=== PATIENT | female | born 1955 | race Caucasian/White ===

== ENCOUNTER → 2016-03-31 | Outpatient (CLI) | payer OTHER ==
--- NOTE | 2016-04-02 10:11 | MM ---
Reason for exam: screening (asymptomatic). Last mammogram was performed 1 year and 3 months ago. History: Patient is postmenopausal. Physical Findings: A clinical breast exam by your physician is recommended on an annual basis and results should be correlated with mammographic findings. MG Screening Mammo w CAD Bilateral CC and MLO view(s) were taken. Prior study comparison: December 20, 2014, bilateral MG screening mammo w CAD. The breast tissue is heterogeneously dense. This may lower the sensitivity of mammography. Finding: There is a high density, indistinct oval mass in the 9 o'clock middle position of the right breast, 4cm from the nipple. New finding since December 20, 2014. ASSESSMENT: Incomplete: need additional imaging evaluation, BI-RAD 0 RECOMMENDATION: Special view mammogram of the left breast. If lesion persists on supplemental views, image directed ultrasound is recommended. [facility] will attempt to contact patient to return for supplemental views and ultrasound if indicated.
== END | disposition home or self-care (01) ==
LOC: RADMAMWWP 13:54
PROVIDERS: ATTEND Obstetrics & Gynecology
DX: Z12.31 Encounter for screening mammogram for malignant neoplasm of breast (principal)

== ENCOUNTER → 2016-04-03 | Outpatient (CLI) | payer OTHER ==
--- NOTE | 2016-04-03 10:48 | MM ---
Reason for exam: additional evaluation requested from abnormal screening. Last mammogram was performed less than 1 month ago. History: Patient is postmenopausal. Physical Findings: Nurse did not find any significant physical abnormalities on exam. MG Work Up Mamm w CAD LT LM, spot compression CC, and spot compression MLO view(s) were taken of the left breast. Prior study comparison: March 31, 2016, bilateral MG screening mammo w CAD. December 20, 2014, bilateral MG screening mammo w CAD. Density persists at approximately 9 o'clock in the left breast. These results were verbally communicated with the patient and result sheet given to the patient on 04/03/16. ASSESSMENT: Incomplete: need additional imaging evaluation, BI-RAD 0 RECOMMENDATION: Ultrasound of the left breast.
--- NOTE | 2016-04-03 10:50 | USB ---
Reason for exam: additional evaluation requested from abnormal screening. History: Patient is postmenopausal. US Breast Workup Limited LT Left breast ultrasound demonstrates a 5 x 2 x 5mm oval, cystic lesion at 9 o'clock, probable duct. These results were verbally communicated with the patient and result sheet given to the patient on 04/03/16. ASSESSMENT: Probably benign, BI-RAD 3 RECOMMENDATION: Follow-up diagnostic mammogram of the left breast in 6 months.
== END | disposition home or self-care (01) ==
LOC: RADMAMWWP 08:29
PROVIDERS: ATTEND Obstetrics & Gynecology
DX: R92.8 Other abnormal and inconclusive findings on diagnostic imaging of breast (principal)
CPT/HCPCS: 76642; G0206

== ENCOUNTER 2016-06-06 20:25 | Emergency (ER) | payer OTHER ==
--- NOTE | 2016-06-06 20:47 | ED ---
General Adult HPI - General Chief complaint: Urogenital Stated complaint: Abd Pain Time Seen by Provider: 06/06/16 20:34 Source: patient, RN notes reviewed Mode of arrival: ambulatory Limitations: no limitations - History of Present Illness Initial comments: This is a 60-year-old female who presents with left lower quadrant pain that started this evening after dinner. Patient states that it was a cramping pain. Patient took a Fioricet and her pain improved, but is slowly increasing again. Patient states she just finished a course of Macrobid for a UTI yesterday. Patient states that she is not urinating as much as she should and patinet denies any burning with urination or frequency of urination. Patient states she feels like she has to go but then cannot. Patient has been eating and drinking normally. Patient denies any change in bowel movements. Patient denies any hematuria, hematochezia, nausea/vomiting. Patient denies any history of kidney stones. Patient has never had this pain before. Patient denies any vaginal discharge or vaginal bleeding. Patient denies any recent fever, chills, shortness breath, chest pain, nausea/vomiting/diarrhea, back pain , numbness, tingling, headache, or visual changes, or any other complaints. - Related Data Home Medications Medication Instructions Recorded Confirmed Atorvastatin [Lipitor] 20 mg PO DAILY 05/27/15 06/06/16 Montelukast [Singulair] 10 mg PO DAILY 05/27/15 06/06/16 Raloxifene [Evista] 60 mg PO DAILY 05/27/15 06/06/16 Verapamil [Isoptin] 40 mg PO DAILY 05/27/15 06/06/16 Previous Rx's Medication Instructions Recorded Ciprofloxacin HCl [Cipro] 500 mg PO Q12HR 10 Days 06/06/16 Allergies Allergy/AdvReac Type Severity Reaction Status Date / Time bandaids AdvReac Rash/Hives Uncoded 06/06/16 20:31 Review of Systems ROS Statement: Those systems with pertinent positive or pertinent negative responses have been documented in the HPI. ROS Other: All systems not noted in ROS Statement are negative. Past Medical History Past Medical History: Hyperlipidemia Additional Past Medical History / Comment(s): HX MIGRAINES, DYSPHAGIA, OSTEOPOROSIS History of Any Multi-Drug Resistant Organisms: None Reported Past Surgical History: Orthopedic Surgery Additional Past Surgical History / Comment(s): ORIF LEFT ANKLE, VAGINAL SX, COLONOSCOPY Past Anesthesia/Blood Transfusion Reactions: No Reported Reaction Past Psychological History: No Psychological Hx Reported Smoking Status: Former smoker Past Alcohol Use History: None Reported Additional Past Alcohol Use History / Comment(s): SMOKED FROM AGE [age], 2-3PPD Past Drug Use History: None Reported General Exam - General Exam Comments Initial Comments: General: The patient is awake and alert, in no distress, and does not appear acutely ill. Eye: Pupils are equal, round and reactive to light, extra-ocular movements are intact. No nystagmus. There is normal conjunctiva bilaterally. No signs of icterus. Ears: TMs pink and pearly with intact cone of light bilaterally. Normal external ear canals Nose: Nasal turbinates pink and moist Mouth and throat: There are moist mucous membranes and no oral lesions. Neck: The neck is supple, there is no tenderness or JVD. Cardiovascular: There is a regular rate and rhythm. No murmur, rub or gallop is appreciated. Respiratory: Lungs are clear to auscultation, respirations are non-labored, breath sounds are equal. No wheezes, stridor, rales, or rhonchi. Gastrointestinal: Mild discomfort to palpation of the left lower quadrant. Soft, non-distended abdomen without masses or organomegaly noted. There is no rebound or guarding present. No CVA tenderness. Bowel sounds are unremarkable. Musculoskeletal: Normal ROM, no tenderness. Strength 5/5. Sensation intact. Radial pulses equal bilaterally 2+. Neurological: A&O x 3. CN II-XII intact, There are no obvious motor or sensory deficits. Coordination appears grossly intact. Speech is normal. Skin: Skin is warm and dry and no rashes or lesions are noted. Psychiatric: Cooperative, appropriate mood & affect, normal judgment. Limitations: no limitations External exam: Present: normal external exam. Absent: erythema, swelling By manual exam: Present: normal by manual exam. Absent: cervical motion tenderness, adnexal tenderness Course Vital Signs 06/06/16 06/06/16 20:29 22:59 Temperature 97.9 F 98.1 F Pulse Rate 79 60 Respiratory 18 16 Rate Blood Pressure 116/83 106/63 O2 Sat by Pulse 98 98 Oximetry Medical Decision Making - Medical Decision Making This is a 60-year-old female presents with left lower quadrant pain. On physical exam patient is afebrile in the EC. Mild discomfort to palpation of the left lower quadrant. Soft, non-distended abdomen without masses or organomegaly noted. There is no rebound or guarding present. No CVA tenderness. Bowel sounds are unremarkable. A KUB was done and reviewed showing : Minimal stool in the right colon. No evidence of obstruction. Paucity of bowel gas. Reported by Dr. Guzman. Basic labs were drawn. A urine was done and came back positive for red blood cells. Urine culture is pending. I discussed the patient will be put on a course of ciprofloxacin for UTI. Discussed that patient should have a repeat urinalysis done in 2-3 days to monitor for improvement. I discussed that patient may need a future CT scan to rule out kidney stone or tumor if the red blood cells in her urine do not decrease. Patient is currently afebrile and is not in a lot of pain. I discussed Tylenol and Motrin for pain and return parameters. I discussed the patient should follow up with her primary care physician in one to 2 days or return to the EC for any worsening symptoms or for any further concerns. Patient was receptive to this plan and patient will be discharged home. I discussed this case with attending physician Dr. Bruno who agrees the plan as stated above. - Lab Data Result diagrams: 06/06/16 21:28 06/06/16 21:28 Lab Results 06/06/16 06/06/16 06/06/16 Range/Units 21:28 21:28 21:28 WBC 8.8 (3.8-10.6) k/uL RBC 4.46 (3.80-5.40) m/uL Hgb 13.5 (11.4-16.0) gm/dL Hct 41.2 (34.0-46.0) % MCV 92.5 (80.0-100.0) fL MCH 30.2 (25.0-35.0) pg MCHC 32.7 (31.0-37.0) g/dL RDW 13.2 (11.5-15.5) % Plt Count 475 H (150-450) k/uL Neutrophils % 78 % Lymphocytes % 15 % Monocytes % 4 % Eosinophils % 0 % Basophils % 0 % Neutrophils # 6.9 (1.3-7.7) k/uL Lymphocytes # 1.3 (1.0-4.8) k/uL Monocytes # 0.3 (0-1.0) k/uL Eosinophils # 0.0 (0-0.7) k/uL Basophils # 0.0 (0-0.2) k/uL PT 11.2 (9.0-12.0) sec INR 1.1 (<1.1) APTT 23.6 (22.0-30.0) sec Sodium 139 (137-145) mmol/L Potassium 4.1 (3.5-5.1) mmol/L Chloride 102 (98-107) mmol/L Carbon Dioxide 26 (22-30) mmol/L Anion Gap 11 mmol/L BUN 20 H (7-17) mg/dL Creatinine 0.80 (0.52-1.04) mg/dL Est GFR (MDRD) Af Amer >60 (>60 ml/min/1.73 sqM) Est GFR (MDRD) Non-Af >60 (>60 ml/min/1.73 sqM) Glucose 118 H (74-99) mg/dL Calcium 9.7 (8.4-10.2) mg/dL Total Bilirubin 0.6 (0.2-1.3) mg/dL AST 32 (14-36) U/L ALT 36 (9-52) U/L Alkaline Phosphatase 95 (38-126) U/L Total Protein 7.5 (6.3-8.2) g/dL Albumin 4.1 (3.5-5.0) g/dL Amylase 74 (30-110) U/L Urine Color Urine Appearance (Clear) Urine pH (5.0-8.0) Ur Specific [place] (1.001-1.035) Urine Protein (Negative) Urine Glucose (UA) (Negative) Urine Ketones (Negative) Urine Blood (Negative) Urine Nitrite (Negative) Urine Bilirubin (Negative) Urine Urobilinogen (<2.0) mg/dL Ur Leukocyte Esterase (Negative) Urine RBC (0-5) /hpf Urine WBC (0-5) /hpf Calcium Oxalate Crystal (None) /hpf Urine Bacteria (None) /hpf Urine Mucus (None) /hpf 06/06/16 Range/Units 21:28 WBC (3.8-10.6) k/uL RBC (3.80-5.40) m/uL Hgb (11.4-16.0) gm/dL Hct (34.0-46.0) % MCV (80.0-100.0) fL MCH (25.0-35.0) pg MCHC (31.0-37.0) g/dL RDW (11.5-15.5) % Plt Count (150-450) k/uL Neutrophils % % Lymphocytes % % Monocytes % % Eosinophils % % Basophils % % Neutrophils # (1.3-7.7) k/uL Lymphocytes # (1.0-4.8) k/uL Monocytes # (0-1.0) k/uL Eosinophils # (0-0.7) k/uL Basophils # (0-0.2) k/uL PT (9.0-12.0) sec INR (<1.1) APTT (22.0-30.0) sec Sodium (137-145) mmol/L Potassium (3.5-5.1) mmol/L Chloride (98-107) mmol/L Carbon Dioxide (22-30) mmol/L Anion Gap mmol/L BUN (7-17) mg/dL Creatinine (0.52-1.04) mg/dL Est GFR (MDRD) Af Amer (>60 ml/min/1.73 sqM) Est GFR (MDRD) Non-Af (>60 ml/min/1.73 sqM) Glucose (74-99) mg/dL Calcium (8.4-10.2) mg/dL Total Bilirubin (0.2-1.3) mg/dL AST (14-36) U/L ALT (9-52) U/L Alkaline Phosphatase (38-126) U/L Total Protein (6.3-8.2) g/dL Albumin (3.5-5.0) g/dL Amylase (30-110) U/L Urine Color Light Red Urine Appearance Cloudy H (Clear) Urine pH 5.0 (5.0-8.0) Ur Specific [place] 1.028 (1.001-1.035) Urine Protein 1+ H (Negative) Urine Glucose (UA) Negative (Negative) Urine Ketones Negative (Negative) Urine Blood Large H (Negative) Urine Nitrite Negative (Negative) Urine Bilirubin Negative (Negative) Urine Urobilinogen <2.0 (<2.0) mg/dL Ur Leukocyte Esterase Trace H (Negative) Urine RBC >182 H (0-5) /hpf Urine WBC <1 (0-5) /hpf Calcium Oxalate Crystal Many H (None) /hpf Urine Bacteria Rare H (None) /hpf Urine Mucus Few H (None) /hpf Disposition Clinical Impression: Urinary tract infection Disposition: HOME SELF-CARE Condition: Good Instructions: Urinary Tract Infection in Women (ED) Additional Instructions: Please finish entire course of antibiotics. Please have a repeat urinalysis done in 2-3 days. Please follow-up with her primary care physician in one to 2 days or return to the [facility] for any worsening symptoms or for any further concerns. Prescriptions: Ciprofloxacin HCl [Cipro] 500 mg PO Q12HR 10 Days Referrals: Jimbo Chamberlain MD [Primary Care Provider] - 1-2 days Time of Disposition: 22:50
[2016-06-06 21:40] LABS: Basophils % (A) 0 %; CH 31.1; CHCM 33.7; Eosinophils % (A) 0 %; HCT 41.2 % (34.0-46.0); HGB 13.5 gm/dL (11.4-16.0); Luc # (Auto) 0.19; Luc % (Auto) 2; Lymphocytes # (A) 1.3 k/uL (1.0-4.8); Lymphocytes % (A) 15 %; MCH 30.2 pg (25.0-35.0); MCHC 32.7 g/dL (31.0-37.0); MCV 92.5 fL (80.0-100.0); Mean Platelet Volume 7.4; Monocytes # (A) 0.3 k/uL (0-1.0); Monocytes % (A) 4 %; Neutrophils # (A) 6.9 k/uL (1.3-7.7); Neutrophils % (A) 78 %; RBC 4.46 m/uL (3.80-5.40); RDW 13.2 % (11.5-15.5); WBC 8.8 k/uL (3.8-10.6)
[2016-06-06 21:44] LABS: Appearance,Urine Cloudy (Clear); Bacteria,Urine Rare /hpf; Bilirubin,Urine Negative (Negative); Calcium Oxalate Crystals,Urine Many /hpf; Glucose,Urine (UA) Negative (Negative); Ketones,Urine Negative (Negative); Leukocyte Esterase,Urine Trace (Negative); Mucus,Urine Few /hpf; Nitrite,Urine Negative (Negative); Particle Count 8243; Protein,Urine 1+ (Negative); RBC,Urine >182 /hpf (0-5); Specific Gravity,Urine 1.028 (1.001-1.035); UA Billing (MACRO vs. MICRO) MICRO; Urobilinogen,Urine <2.0 mg/dL (<2.0); WBC,Urine <1 /hpf (0-5)
[2016-06-06 21:57] LABS: ALT 36 U/L (9-52); AST 32 U/L (14-36); Alkaline Phosphatase 95 U/L (38-126); Amylase 74 U/L (30-110); Anion Gap 11 mmol/L; Blood Urea Nitrogen 20 mg/dL (7-17); Calcium 9.7 mg/dL (8.4-10.2); Carbon Dioxide 26 mmol/L (22-30); Chloride 102 mmol/L (98-107); Glucose 118 mg/dL (74-99); INR 1.1 (<1.1); Non-African American GFR(MDRD) >60 (>60 ml/min/1.73 sqM); Partial Thromboplastin Time 23.6 sec (22.0-30.0); Potassium 4.1 mmol/L (3.5-5.1); Prothrombin Time 11.2 sec (9.0-12.0); Sodium 139 mmol/L (137-145); Total Bilirubin 0.6 mg/dL (0.2-1.3); Total Protein 7.5 g/dL (6.3-8.2)
--- NOTE | 2016-06-06 22:45 | XR ---
EXAM: XR Abdomen Complete, 2 or More Views. CLINICAL HISTORY: Reason: Pain TECHNIQUE: Frontal view of the abdomen/pelvis with upright view of the abdomen. COMPARISON: None FINDINGS: Hardware: None. Abdomen: Minimal stool in the right colon. Paucity of bowel gas throughout the abdomen. No evidence of bowel obstruction. No free air. Bones: Degenerative changes of the spine. Soft tissues: Normal. Lower chest: Mild cardiomegaly. IMPRESSION: Minimal stool in the right colon. No evidence of obstruction. Paucity of bowel gas.
[2016-06-06 23:00] VITALS: BP 106/63; PULSE 60; RESP 16; TEMP 98.1
== END 2016-06-06 22:59 | disposition home or self-care (01) ==
LOC: EC 20:25
DX: N39.0 Urinary tract infection, site not specified (principal); E78.5 Hyperlipidemia, unspecified; Z87.891 Personal history of nicotine dependence; Z79.899 Other long term (current) drug therapy; Z91.048 Other nonmedicinal substance allergy status
CPT/HCPCS: 36415; 74000; 80053; 81001; 82150; 85025; 85610; 85730; 87086; 99284

== ENCOUNTER → 2016-10-02 | Outpatient (CLI) | payer OTHER ==
--- NOTE | 2016-10-05 07:45 | MM ---
Reason for exam: follow-up at short interval from prior study. Last mammogram was performed 6 months ago. History: Patient is postmenopausal. Physical Findings: Nurse did not find any significant physical abnormalities on exam. MG Diagnostic Mammo LT w CAD CC and MLO view(s) were taken of the left breast. Prior study comparison: April 03, 2016, left breast MG work up mamm w CAD LT. April 03, 2016, left breast US breast workup limited LT. March 31, 2016, bilateral MG screening mammo w CAD. December 20, 2014, bilateral MG screening mammo w CAD. The breast tissue is heterogeneously dense. This may lower the sensitivity of mammography. The questioned focal asymmetry does not persist. No significant new findings when compared with previous films. These results were verbally communicated with the patient and result sheet given to the patient on 10/02/16. ASSESSMENT: Negative, BI-RAD 1 RECOMMENDATION: Return to routine screening mammogram schedule for both breasts. Back on schedule.
== END | disposition home or self-care (01) ==
LOC: RADMAMWWP 12:43
PROVIDERS: ATTEND Obstetrics & Gynecology
DX: R92.8 Other abnormal and inconclusive findings on diagnostic imaging of breast (principal)

== ENCOUNTER → 2017-07-19 | Outpatient (CLI) | payer BC ==
--- NOTE | 2017-07-20 07:14 | MM ---
Reason for exam: screening (asymptomatic). Last mammogram was performed 10 months ago. History: Patient is postmenopausal. Physical Findings: A clinical breast exam by your physician is recommended on an annual basis and results should be correlated with mammographic findings. MG Screening Mammo w CAD Bilateral CC and MLO view(s) were taken. Prior study comparison: October 02, 2016, left breast MG diagnostic mammo LT w CAD. April 03, 2016, left breast MG work up mamm w CAD LT. The breast tissue is heterogeneously dense. This may lower the sensitivity of mammography. There is no discrete abnormality. ASSESSMENT: Negative, BI-RAD 1 RECOMMENDATION: Routine screening mammogram of both breasts in 1 year.
== END | disposition home or self-care (01) ==
LOC: RADMAMWWP 10:55
PROVIDERS: ATTEND Obstetrics & Gynecology
DX: Z12.31 Encounter for screening mammogram for malignant neoplasm of breast (principal)
CPT/HCPCS: 77067

== ENCOUNTER 2017-08-31 16:13 | Emergency (ER) | payer BC ==
[2017-08-31 16:57] VITALS: BP 120/67; PULSE 63; RESP 18; TEMP 98.4
[2017-08-31] MEDS ORDERED: APIXABAN 5 MG TAB PO STA (17:29)
--- NOTE | 2017-08-31 17:30 | ED ---
Lower Extremity Injury HPI - General Chief Complaint: Extremity Injury, Lower Stated Complaint: Confirmed lt leg DVT Time Seen by Provider: 08/31/17 17:11 Source: patient, RN notes reviewed Mode of arrival: wheelchair Limitations: no limitations - History of Present Illness Initial Comments: This a 61-year-old female presented emergency Department with chief complaint of left leg pain and swelling. Patient had surgery last Wednesday by Dr. Bruno. Patient had arthroscopic left knee surgery. Patient was sent here for ultrasound today in which the patient is positive for DVT. She has no history DVT. Patient denies any chest pain, shortness breath, headache, dizziness. Patient states that she was sent here for further treatment. - Related Data Home Medications Medication Instructions Recorded Confirmed Atorvastatin [Lipitor] 20 mg PO DAILY 05/27/15 08/31/17 Montelukast [Singulair] 10 mg PO DAILY 05/27/15 08/31/17 Raloxifene [Evista] 60 mg PO DAILY 05/27/15 08/31/17 Aspirin EC [Ecotrin Low Dose] 81 mg PO DAILY 08/31/17 08/31/17 Calcium Carbonate/Vitamin D3 2 tab PO DAILY 08/31/17 08/31/17 [Calcium 600-Vit D3 400 Caplet] Multivitamins, Thera [Multivitamin 1 tab PO DAILY 08/31/17 08/31/17 (formulary)] Verapamil Sr [Isoptin Sr] 240 mg PO DAILY 08/31/17 08/31/17 Previous Rx's Medication Instructions Recorded Apixaban [Eliquis] 0 mg PO DIRECTED #74 tablet 08/31/17 Allergies Allergy/AdvReac Type Severity Reaction Status Date / Time bandaids AdvReac Rash/Hives Uncoded 08/31/17 16:57 Review of Systems ROS Statement: Those systems with pertinent positive or pertinent negative responses have been documented in the HPI. ROS Other: All systems not noted in ROS Statement are negative. Past Medical History Past Medical History: Hyperlipidemia Additional Past Medical History / Comment(s): HX MIGRAINES, DYSPHAGIA, OSTEOPOROSIS History of Any Multi-Drug Resistant Organisms: None Reported Past Surgical History: Orthopedic Surgery Additional Past Surgical History / Comment(s): ORIF LEFT ANKLE, VAGINAL SX, COLONOSCOPY Past Anesthesia/Blood Transfusion Reactions: No Reported Reaction Past Psychological History: No Psychological Hx Reported Smoking Status: Former smoker Past Alcohol Use History: None Reported Past Drug Use History: None Reported General Exam Limitations: no limitations General appearance: alert, in no apparent distress Respiratory exam: Present: normal lung sounds bilaterally. Absent: respiratory distress, wheezes, rales, rhonchi, stridor Cardiovascular Exam: Present: regular rate, normal rhythm, normal heart sounds. Absent: systolic murmur, diastolic murmur, rubs, gallop, clicks Extremities exam: Present: other (There is mild tenderness the left calf. Patient has full range of motion of the left foot and ankle there is mild decreased range of motion left knee secondary to recent knee surgery there is no erythema no warmth.) Skin exam: Present: warm, dry Course Vital Signs 08/31/17 16:52 Temperature 98.4 F Pulse Rate 63 Respiratory 18 Rate Blood Pressure 120/67 O2 Sat by Pulse 100 Oximetry Medical Decision Making - Medical Decision Making 61-year-old female presents for chief complaint of left leg pain. Patient is positive for DVT. Patient has no chest pain or shortness of breath. Patient DVT likely cause from recent surgery. Patient was started on Eliquis in the emergency department discharged on Eliquis. Disposition Clinical Impression: Left leg DVT Disposition: HOME SELF-CARE Condition: Stable Instructions: Deep Venous Thrombosis (ED) Additional Instructions: Please return to the Emergency Department if symptoms worsen or any other concerns. Prescriptions: Apixaban [Eliquis] 0 mg PO DIRECTED #74 tablet Is patient prescribed a controlled substance at d/c from ED?: No Referrals: Jimbo Chamberlain MD [Primary Care Provider] - 1-2 days Time of Disposition: 17:29
--- NOTE | 2017-09-01 07:13 | US ---
EXAMINATION TYPE: US venous doppler duplex LE LT DATE OF EXAM: 08/31/2017 4:00 PM COMPARISON: NONE CLINICAL HISTORY: LEG PAIN,SWELLING, I82.401/I82.402/M79.661/M79.662. Cramping left leg, orthoscopic surgery left knee 1 week ago SIDE PERFORMED: left TECHNIQUE: The lower extremity deep venous system is examined utilizing real time linear array sonog saritha with graded compression, doppler sonography and color-flow sonography. VESSELS IMAGED: External Iliac Vein (EIV) Common Femoral Vein Deep Femoral Vein Greater Saphenous Vein * Femoral Vein Popliteal Vein Small Saphenous Vein * Proximal Calf Veins (* superficial vessels) Grayscale, color doppler, spectral doppler imaging performed of the deep veins of the left lower extr emity. Left Leg: +Positive for DVT, left popliteal vein mid extending into one of the proximal calf veins IMPRESSION: Acute deep venous thrombosis within the left popliteal vein extending into a proximal c el vein. Preliminary results given to Ana at end of exam. Patient walked down to the ER
== END 2017-08-31 17:51 | disposition home or self-care (01) ==
LOC: EC 16:13
DX: I82.402 Acute embolism and thrombosis of unspecified deep veins of left lower extremity (principal); E78.5 Hyperlipidemia, unspecified; M81.0 Age-related osteoporosis without current pathological fracture; Z87.891 Personal history of nicotine dependence; Z79.82 Long term (current) use of aspirin; Z79.899 Other long term (current) drug therapy; Z91.09 Other allergy status, other than to drugs and biological substances; Z98.890 Other specified postprocedural states
CPT/HCPCS: 99283

== ENCOUNTER → 2018-08-01 | Outpatient (CLI) | payer BC ==
--- NOTE | 2018-08-02 10:49 | MM ---
Reason for exam: screening (asymptomatic). Last mammogram was performed 1 year ago. History: Patient is postmenopausal. Physical Findings: A clinical breast exam by your physician is recommended on an annual basis and results should be correlated with mammographic findings. MG Screening Mammo w CAD Bilateral CC and MLO view(s) were taken. Prior study comparison: July 19, 2017, bilateral MG screening mammo w CAD. October 02, 2016, left breast MG diagnostic mammo LT w CAD. The breast tissue is heterogeneously dense. This may lower the sensitivity of mammography. No significant changes when compared with prior studies. ASSESSMENT: Negative, BI-RAD 1 RECOMMENDATION: Routine screening mammogram of both breasts in 1 year.
== END | disposition home or self-care (01) ==
LOC: RADMAMWWP 14:36
PROVIDERS: ATTEND Obstetrics & Gynecology
DX: Z12.31 Encounter for screening mammogram for malignant neoplasm of breast (principal)
CPT/HCPCS: 77067

== ENCOUNTER → 2018-09-19 | Outpatient (CLI) | payer MEDICARE ==
--- NOTE | 2018-09-19 15:30 | BD ---
EXAMINATION TYPE: Axial Bone Density DATE OF EXAM: 09/19/2018 COMPARISON: 12/20/2014 CLINICAL HISTORY: M [age]. Postmenopausal female. Osteoporosis screening. Height: 60.5 Weight: 195 FRAX RISK QUESTIONS: Alcohol (3 or more units per day): no Family History (Parent hip fracture): unknown Glucocorticoids (More than 3mos): no (Ex: prednisone, prednisolone, methylprednisolone, dexamethasone, and hydrocortisone). History of Fracture in Adulthood: yes, both ankles Secondary Osteoporosis: 1. Type 1 Diabetes: no 2. Hyperthyroidism: no 3. Menopause before 45: at 43 4. Malnutrition: no 5. Chronic liver disease: no Rheumatoid Arthritis: no Current Tobacco Use: no RISK FACTORS HISTORY OF: Family History of Osteoporosis: unknown Active: yes Diet low in dairy products/other sources of calcium: no Postmenopausal woman: yes Take estrogen and/or progesterone medications: no Lost more than 2 inches in height since high school: no Frequent falls: no Poor Health: no Hyperparathyroidism: no Adrenal Insufficiency: no MEDICATIONS: Prednisone or other steroids: no Thyroid Medications: no Osteoporosis Medications: not now Which medication: Evista How Long: a few years Additional Medications: cholesterol med Additional History: EXAM MEASUREMENTS: Bone mineral densitometry was performed using the [employer] System. Bone mineral density as measured about the Lumbar spine is: ----- L1-L4(G/cm2): 1.022 T Score Values are as follows: ----- L2: -1.7 ----- L3: -1.5 ----- L4: -0.9 ----- L1-L4: -1.3 Bone mineral density has: Increased 0.3% since study of: 12/20/2014 Bone mineral density about the R hip (g/cm2): 0.817 Bone mineral density about the L hip (g/cm2): 0.789 T Score values are as follows: -----R Neck: -1.6 -----L Neck: -1.8 -----R Total: -1.0 -----L Total: -1.3 Bone mineral density has: Decreased -0.7% since study of: 12/20/2014 IMPRESSION: Osteopenia (T Score between -2.5 and -1). There is slightly increased risk of fracture and the patient may be considered for treatment. Re-Screen 2-5 years. NOTE: T-SCORE=SD OF THE YOUNG ADULT MEAN.
== END | disposition home or self-care (01) ==
LOC: RADBDWWP 13:34
PROVIDERS: ATTEND Internal Medicine
DX: M85.80 Other specified disorders of bone density and structure, unspecified site (principal)
CPT/HCPCS: 77080

== ENCOUNTER → 2020-03-28 | Outpatient (CLI) | payer MEDICARE ==
--- NOTE | 2020-03-29 14:52 | MM ---
Reason for exam: screening (asymptomatic). Last mammogram was performed 1 year and 8 months ago. History: Patient is postmenopausal. Physical Findings: A clinical breast exam by your physician is recommended on an annual basis and results should be correlated with mammographic findings. MG 3D Screening Mammo W/Cad Bilateral CC and MLO view(s) were taken. Prior study comparison: August 01, 2018, bilateral MG screening mammo w CAD. July 19, 2017, bilateral MG screening mammo w CAD. The breast tissue is heterogeneously dense. This may lower the sensitivity of mammography. There is no discrete abnormality. ASSESSMENT: Negative, BI-RAD 1 RECOMMENDATION: Routine screening mammogram of both breasts in 1 year.
== END | disposition home or self-care (01) ==
LOC: RADMAMWWP 11:02
PROVIDERS: ATTEND Internal Medicine
DX: Z12.31 Encounter for screening mammogram for malignant neoplasm of breast (principal)
CPT/HCPCS: 77063; 77067

== ENCOUNTER → 2020-09-24 | Outpatient (CLI) | payer MEDICARE | END | disposition home or self-care (01) ==

== ENCOUNTER 2021-06-29 10:16 | Emergency (ER) | payer MEDICARE ==
[2021-06-29 10:25] VITALS: TEMP 97.2
[2021-06-29 11:41] VITALS: RESP 16
--- NOTE | 2021-06-29 11:57 | US ---
EXAMINATION TYPE: US venous doppler duplex LE LT DATE OF EXAM: 06/29/2021 11:43 AM COMPARISON: US left lower extremity August 31, 2017 CLINICAL HISTORY: Pain radiating from groin, hx of DVT. Hx DVT. Groin pain. Patient takes aspirin. Hx left knee surgery 5 years ago. SIDE PERFORMED: Left TECHNIQUE: The lower extremity deep venous system is examined utilizing real time linear array sonog saritha with graded compression, doppler sonography and color-flow sonography. VESSELS IMAGED: Common Femoral Vein Deep Femoral Vein Greater Saphenous Vein * Femoral Vein Popliteal Vein Small Saphenous Vein * Proximal Calf Veins (* superficial vessels) Left Leg: No evidence of DVT in veins imaged at this time. IMPRESSION: No ultrasound evidence for acute DVT in the left lower extremity. No significant change from prior.
--- NOTE | 2021-06-29 13:25 | CT ---
EXAMINATION TYPE: CT lumbar spine wo con DATE OF EXAM: 06/29/2021 COMPARISON: None available HISTORY: Left leg pain and weakness CT DLP: 1068 mGycm. Automated Exposure Control for Dose Reduction was Utilized. TECHNIQUE: Multiple contiguous axial CT images of the thoracic spine without the administration of intravenous c ontrast. 2-D sagittal and coronal reformats were obtained. FINDINGS: Lumbar vertebral body heights maintained. Minimal grade 1 anterolisthesis of L4-5. No acute fracture or traumatic subluxation. Mild multilevel degenerative disc changes with anterior osteophyte formation. Mild intervertebral dis c height loss at the level of T11-12 Multilevel facet arthropathy most pronounced in the lower lumbar spine which appears advanced at the levels of L4-5 and L5-S1. The spinous processes of the lumbar spine appear hypertrophied and closely approximated with associat ed sclerosis and cystic changes. Paraspinal soft tissues appear unremarkable. Partially visualized retroperitoneal structures appear u nremarkable. T12-L1: Broad-based disc protrusion. Mild facet arthropathy. No spinal canal stenosis or neural anthony inal narrowing. T12-L1: No disc bulge. Mild facet arthropathy. No spinal canal stenosis or neural foraminal narrowing . L1-2: No disc bulge. Mild facet arthropathy. No spinal canal stenosis or neural foraminal narrowing. L2-3: No disc bulge. Mild facet arthropathy. No spinal canal stenosis or neural foraminal narrowing. L3-4: Broad-based disc bulge. Moderate facet arthropathy. No spinal canal stenosis or neural foramina l narrowing. L4-5: Grade 1 anterolisthesis. Broad-based disc bulge. Advanced facet arthropathy. No spinal canal st enosis or neural foraminal narrowing. L5-S1: Broad-based disc bulge with right foraminal disc osteophyte complex. No spinal canal stenosis or neural foraminal narrowing. IMPRESSION: 1. No acute fracture or traumatic subluxation involving the thoracic or lumbar spines. 2. No spinal canal stenosis or neural foraminal narrowing. 3. Multilevel facet arthropathy most pronounced in the lower lumbar spine which appears advanced caus ing minimal grade 1 anterolisthesis of L4-5. 4. Hypertrophied and closely approximated spinous processes with associated sclerosis and cystic villalobos ges. Findings could relate to underlying Baastrup's disease. Further evaluation with MRI can be obtai jesús.
--- NOTE | 2021-06-29 14:16 | ED ---
Extremity Problem HPI - General Chief complaint: Extremity Problem,Nontraumatic Stated complaint: possible blood clot Time Seen by Provider: 06/29/21 10:29 Source: patient, family, RN notes reviewed Mode of arrival: ambulatory Limitations: no limitations - History of Present Illness Initial comments: This is a 65-year-old female who presents to the emergency department for left leg pain. States that the pain radiates from the left groin and goes down the leg. She describes this as both pain and weakness. When she gets in the car, she has to physically lift her leg to get in. The pain also wakes her up at night, and she describes this pain as cramping. She does have a history of a DVT in that leg as well. Symptoms have been present for a week. Denies any chest pain or shortness of breath. She does note that a few days ago, she had swelling that went down to the top of her foot as well as some redness, however this resolved by the next day. She does not currently have any erythema or swelling. She also notes a history of lower back problems, and she was last evaluated by neurology over 15 years ago. MD Complaint: extremity pain Onset/Timin -: week(s) Location: left, lower extremity Worsens with: weight bearing - Related Data Home Medications Medication Instructions Recorded Confirmed Atorvastatin [Lipitor] 20 mg PO DAILY 05/27/15 08/31/17 Montelukast [Singulair] 10 mg PO DAILY 05/27/15 08/31/17 Raloxifene [Evista] 60 mg PO DAILY 05/27/15 08/31/17 Aspirin EC [Ecotrin Low Dose] 81 mg PO DAILY 08/31/17 08/31/17 Calcium Carbonate/Vitamin D3 2 tab PO DAILY 08/31/17 08/31/17 [Calcium 600-Vit D3 400 Caplet] Multivitamins, Thera [Multivitamin 1 tab PO DAILY 08/31/17 08/31/17 (formulary)] Verapamil Sr [Isoptin Sr] 240 mg PO DAILY 08/31/17 08/31/17 Previous Rx's Medication Instructions Recorded Apixaban [Eliquis] 0 mg PO DIRECTED #74 tablet 08/31/17 Acetaminophen-Codeine 300-30mg 1 tab PO Q6H PRN 3 Days #12 tablet 06/29/21 [Tylenol w/codeine #3] Diclofenac Sodium [Voltaren] 75 mg PO BID PRN #20 tab 06/29/21 Allergies Allergy/AdvReac Type Severity Reaction Status Date / Time bandaids AdvReac Rash/Hives Uncoded 06/29/21 10:25 Review of Systems ROS Statement: Those systems with pertinent positive or pertinent negative responses have been documented in the HPI. ROS Other: All systems not noted in ROS Statement are negative. Constitutional: Denies: fever, chills ENT: Denies: ear pain, throat pain Respiratory: Denies: cough, dyspnea Cardiovascular: Denies: chest pain, palpitations Endocrine: Denies: fatigue Gastrointestinal: Denies: abdominal pain, nausea, vomiting, diarrhea Genitourinary: Denies: urgency, dysuria Musculoskeletal: Reports: other (left leg pain). Denies: back pain Skin: Denies: rash Neurological: Denies: headache Past Medical History Past Medical History: Hyperlipidemia Additional Past Medical History / Comment(s): HX MIGRAINES, DYSPHAGIA, OST EOPOROSIS, blood clot left knee History of Any Multi-Drug Resistant Organisms: None Reported Past Surgical History: Orthopedic Surgery Additional Past Surgical History / Comment(s): ORIF LEFT ANKLE, VAGINAL SX, COLONOSCOPY Past Anesthesia/Blood Transfusion Reactions: No Reported Reaction Past Psychological History: No Psychological Hx Reported Smoking Status: Never smoker Past Alcohol Use History: None Reported Past Drug Use History: None Reported General Exam Limitations: no limitations General appearance: alert, in no apparent distress Head exam: Present: atraumatic, normocephalic, normal inspection Respiratory exam: Present: normal lung sounds bilaterally. Absent: respiratory distress, wheezes, rales, rhonchi, stridor Cardiovascular Exam: Present: regular rate, normal rhythm, normal heart sounds. Absent: systolic murmur, diastolic murmur, rubs, gallop, clicks Left Hip exam: Present: normal inspection, full ROM. Absent: tenderness, swelling Upper Leg exam: Present: normal inspection, full ROM. Absent: tenderness, swelling Knee exam: Present: normal inspection, full ROM. Absent: tenderness, swelling Lower Leg exam: Present: normal inspection, full ROM. Absent: tenderness, swelling, Homans' sign Ankle exam: Present: normal inspection, full ROM. Absent: tenderness, swelling Foot/Toe exam: Present: normal inspection, full ROM. Absent: tenderness, swelling Neurovascular tendon exam: Present: no vascular compromise. Absent: pulse deficit, abnormal cap refill, extremity cold to touch, pallor Neurological exam: Present: alert, oriented X3, CN II-XII intact Psychiatric exam: Present: normal affect, normal mood Skin exam: Present: warm, dry, intact, normal color. Absent: rash Course Vital Signs 06/29/21 06/29/21 06/29/21 10:21 11:25 12:00 Temperature 97.2 F L Pulse Rate 67 62 61 Respiratory 18 16 16 Rate Blood Pressure 126/79 122/72 119/81 O2 Sat by Pulse 98 96 98 Oximetry 06/29/21 14:28 Temperature Pulse Rate 87 Respiratory 16 Rate Blood Pressure 120/89 O2 Sat by Pulse 98 Oximetry Medical Decision Making - Medical Decision Making This is a 65-year-old female who presents to the emergency department for left leg pain and weakness. Given her history of DVTs, the weakness and the cramping, an ultrasound of the left lower extremity was obtained. This did not identify a DVT. There is also possibility that the pathology is related to her back. CT of the lumbar spine was obtained, which revealed multifacet arthro shannon and hypertrophied and closely approximated spinous processes with associated cystic and sclerotic changes. It was suggested that these findings could be indicative of an underlying Baastrup's disease. We discussed that lower back problems can cause a sensation of pain in the groin radiating distally. She will most likely need an MRI for further evaluation. This will be something she discusses with her primary care provider on an outpatient basis. Rx for diclofenac and Tylenol #3 provided. She is advised to take the Tylenol #3 at night until she knows how it affects her. She is advised to avoid taking Ibuprofen or any other anti-inflammatories with the diclofenac. Return precautions reviewed in depth, the patient is instructed to return to the emergency department with any new, worsening, or concerning symptoms. Patient verbalized understanding. This case was discussed in detail with the attending ED physician. Presentation, findings, and treatment plan discussed in detail as well. - Radiology Data Radiology results: report reviewed, image reviewed Disposition Clinical Impression: Radicular pain of left lower extremity Disposition: HOME SELF-CARE Instructions (If sedation given, give patient instructions): Lumbar Radiculopathy (ED), Leg Pain (ED) Additional Instructions: Return to the emergency department with any new, worsening, or concerning symptoms. Including but not limited to, increasing pain, numbness, inability to ambulate, or loss of bowel or bladder control. Take the tylenol #3 at night until you know how it affects you. Do not use Ibuprofen with the diclofenac. Follow up with your primary care provider in 1 to 2 days to discuss the need for an MRI. Prescriptions: Acetaminophen-Codeine 300-30mg [Tylenol w/codeine #3] 1 tab PO Q6H PRN 3 Days #12 tablet PRN Reason: Pain Diclofenac Sodium [Voltaren] 75 mg PO BID PRN #20 tab PRN Reason: Pain Is patient prescribed a controlled substance at d/c from ED?: Yes When asked, does pt state using other controlled substances?: No If prescribed controlled substance>3 days was MAPS reviewed?: Prescribed <3 Days Referrals: Darryn De Souza MD [Primary Care Provider] - 1-2 days
[2021-06-29 14:30] VITALS: BP 120/89; PULSE 87
== END 2021-06-29 14:30 | disposition home or self-care (01) ==
LOC: EC 10:16
DX: M79.605 Pain in left leg (principal); Z91.048 Other nonmedicinal substance allergy status
CPT/HCPCS: 72131; 99285

== ENCOUNTER → 2021-07-22 | Outpatient (CLI) | payer MEDICARE ==
--- NOTE | 2021-07-25 09:26 | MM ---
Reason for exam: screening (asymptomatic). Last mammogram was performed 1 year and 4 months ago. History: Patient is postmenopausal. Physical Findings: A clinical breast exam by your physician is recommended on an annual basis and results should be correlated with mammographic findings. MG Screening Mammo w CAD Bilateral CC and MLO view(s) were taken. Prior study comparison: March 28, 2020, bilateral MG 3d screening mammo w/cad. August 01, 2018, bilateral MG screening mammo w CAD. The breast tissue is heterogeneously dense. This may lower the sensitivity of mammography. Finding: There are four grouped/clustered calcifications in the right breast. New finding since March 28, 2020. ASSESSMENT: Probably benign, BI-RAD 3 RECOMMENDATION: Follow-up diagnostic mammogram of the right breast in 6 months. (+ magnification views)
== END | disposition home or self-care (01) ==
LOC: RADMAMWWP 15:24
PROVIDERS: ATTEND Obstetrics & Gynecology
DX: Z12.31 Encounter for screening mammogram for malignant neoplasm of breast (principal)
CPT/HCPCS: 77067

== ENCOUNTER 2021-09-05 10:47 | Day surgery (SDC) | payer MEDICARE ==
[2021-09-04 08:59] VITALS: BMI 34.4
[~2021-09-05 10:47] MED LIST: LACTATED RINGERS 1,000 ML IV SCH; LIDOCAINE 1% (10MG/ML) FOR IV START INTRADERMA PRN
[2021-09-05 11:52] VITALS: RESP 18; TEMP 98.3
[2021-09-05] MEDS ORDERED: PROPOFOL 10 MG/ML 20 ML VIAL IV ONE (12:27)
[2021-09-05] MEDS ORDERED: LIDOCAINE 2% INJ 20 MG/ML (2 ML VIAL) ONE (12:27)
--- NOTE | 2021-09-05 12:39 | P.PCN ---
Date of Procedure: 09/05/21 Procedure(s) Performed: BRIEF HISTORY: Patient is a 65-year-old, pleasant, white female scheduled for an upper endoscopy as a part of evaluation of intermittent dysphagia to solids and liquids for the last 6 years duration. Lately her symptoms are progressively getting worse and hence scheduled for an upper endoscopy with possible dilation. PROCEDURE PERFORMED: Esophagogastroduodenoscopy with biopsy and dilation. PREOPERATIVE DIAGNOSIS: dy intermittentsphagia to solids of 6 years duration. IV sedation per anesthesia. PROCEDURE: After informed consent was obtained, the patient was brought into the endoscopy unit. IV sedation was administered by Anesthesia under continuous monitoring. Initially the Olympus GIF-140 video endoscope was inserted into the mouth. Esophagus intubated without any difficulty. It was gradually advanced into the stomach and duodenum and carefully examined. The bulb and the second part of the duodenum appeared normal. The scope at this time was withdrawn to the stomach, adequately insufflated with air, and upon careful examination, mucosa of the antrum, body, cardia and the fundus appeared normal. The scope was then withdrawn into the esophagus. The GE junction was located at 39 cm from the incisors. There was a distal esophageal widely patent Schatzki's ring identified that was dilated using 18-20 mm TTS balloon for 60 seconds. There were 2 small polyp at the GE junction which was biopsied. The entire esophagus appeared normal. There were no erosions or ulcerations seen, biopsies were done from the mid and distal esophagus and the patient tolerated the procedure well. IMPRESSION: 1. Widely patent distal esophageal Schatzki's ring status post balloon dilation using 18-20 mm TTS balloon as described above. 2. Small polyp at the GE junction status post biopsy 3. Small hiatal hernia.. RECOMMENDATIONS: The findings of this examination were discussed with the patient as well as her family. She was advised to follow with the biopsy results. She'll be seen in office in 3-4 weeks..
[2021-09-05 13:02] VITALS: BP 110/72; PULSE 59
== END 2021-09-05 13:15 | disposition home or self-care (01) ==
LOC: ORWHC2ENDO 10:47
PROVIDERS: ATTEND Internal Medicine Gastroenterology
DX: K22.82 Esophagogastric junction polyp (principal); K22.2 Esophageal obstruction; K44.9 Diaphragmatic hernia without obstruction or gangrene; G43.909 Migraine, unspecified, not intractable, without status migrainosus; Z91.09 Other allergy status, other than to drugs and biological substances; Z79.899 Other long term (current) drug therapy; Z79.82 Long term (current) use of aspirin; Z79.84 Long term (current) use of oral hypoglycemic drugs; Z87.891 Personal history of nicotine dependence; Z88.0 Allergy status to penicillin; Z88.5 Allergy status to narcotic agent; Z88.6 Allergy status to analgesic agent
CPT/HCPCS: 88305; 43239; 43249; J2704; J2001; C1726

== ENCOUNTER → 2021-10-07 | Outpatient (CLI) | payer MEDICARE ==
--- NOTE | 2021-10-07 09:15 | US ---
EXAMINATION TYPE: US kidneys/renal and bladder DATE OF EXAM: 10/07/2021 COMPARISON: NONE CLINICAL HISTORY: R82.90 ABN URINALYSIS. Abn urinalysis. EXAM MEASUREMENTS: Right Kidney: 10.7 x 4.5 x 4.4 cm Left Kidney: 10.2 x 4.6 x 4.4 cm Right Kidney: No hydronephrosis or masses seen Left Kidney: No hydronephrosis or masses seen Bladder: Anechoic Bilateral Jets seen: Yes There is no evidence for hydronephrosis at this point in time. No nephrolithiasis is seen. No bethel s are identified. The urinary bladder is anechoic. Bilateral ureteral jets are seen. IMPRESSION: No acute process
== END | disposition home or self-care (01) ==
LOC: RADUSWWP 08:47
PROVIDERS: ATTEND Internal Medicine
DX: R82.90 Unspecified abnormal findings in urine (principal)
CPT/HCPCS: 76770

== ENCOUNTER → 2021-10-07 | Outpatient (CLI) | payer MEDICARE ==
--- NOTE | 2021-10-07 09:45 | XR ---
EXAMINATION TYPE: XR Hip Bilateral and AP pelvis DATE OF EXAM: 10/07/2021 9:36 AM INDICATION: Patient age:Female; 66 years old; Reason for study: [id number]; [facility]. COMPARISON: None. TECHNIQUE: Both hips were examined in frontal and frog-leg views with single AP pelvic view obtained. FINDINGS: No evidence of any acute osseous pathology, joint dislocation, or soft tissue swelling. Mil d osteoarthritic changes of both hips with joint space narrowing and sclerosis. IMPRESSION: No acute osseous pathology.
== END | disposition home or self-care (01) ==
LOC: RADXRMAIN 09:19
PROVIDERS: ATTEND Internal Medicine
DX: R10.30 Lower abdominal pain, unspecified (principal)
CPT/HCPCS: 73521

== ENCOUNTER 2021-12-10 10:25 | Day surgery (SDC) | payer MEDICARE ==
[2021-12-08 15:23] VITALS: BMI 35.1
[~2021-12-10 10:25] MED LIST changes: -LIDOCAINE 1% (10MG/ML) FOR IV START INTRADERMA PRN
[2021-12-10 10:57] VITALS: TEMP 98.3
[2021-12-10] MEDS ORDERED: PROPOFOL 10 MG/ML 20 ML VIAL IV ONE (11:37)
--- NOTE | 2021-12-10 11:51 | P.PCN ---
Date of Procedure: 12/10/21 Procedure(s) Performed: BRIEF HISTORY: Patient is a 66-year-old pleasant white female scheduled for an elective colonoscopy as a part of the for colorectal neoplasia. PROCEDURE PERFORMED: Colonoscopy. PREOPERATIVE DIAGNOSIS: Screening for colon cancer. IV sedation per Anesthesia. PROCEDURE: After informed consent was obtained, the patient, was brought into the endoscopy unit. IV sedation was administered by Anesthesia under continuous monitoring. Digital rectal examination was normal. Initially the Olympus CF-160 flexible video colonoscope was then inserted in the rectum, gradually advanced into the cecum without any difficulty. Careful examination was performed as the scope was gradually being withdrawn. Ileocecal valve and the appendiceal orifice were visualized and appeared normal. Prep was excellent. Mucosa of the cecum, ascending colon, transverse colon, descending colon, sigmoid colon, and rectum appeared normal. Retroflexion was performed in the rectum and no lesions were seen. The patient tolerated the procedure well. IMPRESSION: Normal-appearing colon from rectum to cecum no evidence of colorectal neoplasia . RECOMMENDATIONS: Findings of this examination were discussed with the patient as well as her family. She was advised to have a repeat screening colonoscopy in 10 years.
[2021-12-10 12:14] VITALS: RESP 16
[2021-12-10 12:16] VITALS: BP 136/72; PULSE 58
== END 2021-12-10 12:25 | disposition home or self-care (01) ==
LOC: ORWHC2ENDO 10:25
PROVIDERS: ATTEND Internal Medicine Gastroenterology
DX: Z12.11 Encounter for screening for malignant neoplasm of colon (principal); E78.5 Hyperlipidemia, unspecified; Z79.82 Long term (current) use of aspirin; Z79.899 Other long term (current) drug therapy; Z98.890 Other specified postprocedural states
CPT/HCPCS: J2704; G0121

== ENCOUNTER → 2022-01-23 | Outpatient (CLI) | payer MEDICARE ==
--- NOTE | 2022-01-23 14:58 | MM ---
Reason for Exam: Follow-up at short interval from prior study. Last screening mammogram was performed 6 month(s) ago. Patient History: Menarche at age 9. Patient has no children. Postmenopausal. Risk Values: Myriam 5 year model risk: 2.1%. NCI Lifetime model risk: 6.7%. Prior Study Comparison: 12/20/2014 Bilateral Screening Mammogram, [facility]. 03/31/2016 Bilateral Screening Mammogram, [facility]. 10/02/2016 Left Diagnostic Mammogram, [facility]. 07/19/2017 Bilateral Screening Mammogram, [facility]. 08/01/2018 Bilateral Screening Mammogram, [facility]. 03/28/2020 Bilateral Screening Mammogram, [facility]. 07/22/2021 Bilateral Screening Mammogram, [facility]. Tissue Density: Right: The breast tissue is heterogeneously dense. This may lower the sensitivity of mammography. Findings: Analyzed By CAD. Stable benign-appearing calcifications right breast with total number of calcifications seen at 4. No new calcifications noted. No evidence for. Overall Assessment: Probably benign, BI-RAD 3 Management: Diagnostic Mammogram of both breasts in 6 months. A clinical breast exam by your physician is recommended on an annual basis and results should be correlated with mammographic findings. This exam should not preclude additional follow-up of suspicious palpable abnormalities. Results were given to the patient verbally at the time of exam. Electronically signed and approved by: Álvaro Luna M.D. Radiologis
== END | disposition home or self-care (01) ==
LOC: RADMAMWWP 14:17
PROVIDERS: ATTEND Obstetrics & Gynecology
DX: R92.8 Other abnormal and inconclusive findings on diagnostic imaging of breast (principal); Z78.0 Asymptomatic menopausal state
CPT/HCPCS: 77065

== ENCOUNTER → 2022-07-23 | Outpatient (CLI) | payer MEDICARE ==
--- NOTE | 2022-07-23 14:49 | MM ---
Reason for Exam: Follow-up at short interval from prior study. Last screening mammogram was performed 12 month(s) ago. Patient History: Menarche at age 9. Patient has no children. Postmenopausal. Risk Values: Myriam 5 year model risk: 2.1%. NCI Lifetime model risk: 6.7%. Tissue Density: The breast tissue is heterogeneously dense. This may lower the sensitivity of mammography. Findings: Analyzed By CAD. Benign appearing vascular calcification the right breast is redemonstrated. There are a few tiny benign-appearing round calcifications in the bilateral breasts redemonstrated. No suspicious new mass or distortion in either breast. Overall Assessment: Benign, BI-RAD 2 Management: Screening Mammogram of both breasts in 1 year. . Results were given to the patient verbally at the time of exam. Patient should continue monthly self-breast exams. A clinical breast exam by your physician is recommended on an annual basis. This exam should not preclude additional follow-up of suspicious palpable abnormalities. Note on Myriam scores and lifetime risk: 1. A Myriam score greater than 3% is considered moderate risk. If this is the case, consider specialist referral to assess eligibility for a risk reducing agent. 2. If overall lifetime risk for the development of breast cancer is 20% or higher, the patient may qualify for future screening with alternating mammogram and breast MRI. Electronically signed and approved by: Rajan Campos M.D.
== END | disposition home or self-care (01) ==
LOC: RADMAMWWP 14:25
PROVIDERS: ATTEND Obstetrics & Gynecology
DX: R92.8 Other abnormal and inconclusive findings on diagnostic imaging of breast (principal); Z78.0 Asymptomatic menopausal state
CPT/HCPCS: 77066; G0279; 77062

== ENCOUNTER → 2023-05-10 | Outpatient (CLI) | payer MEDICARE ==
--- NOTE | 2023-05-10 17:41 | BD ---
EXAMINATION TYPE: Axial Bone Density DATE OF EXAM: 05/10/2023 CLINICAL HISTORY: 67 years old Female. ICD-10 CODE: M85.88 OTH DISRD OF BONE DENSITY AND STRUCTURE, OT Height: 60 in Weight: 156 lbs FRAX RISK QUESTIONS: History of Fracture in Adulthood: lt ankle age 41; rt ankle fx age 43 EXAM MEASUREMENTS: Bone mineral densitometry was performed using the [facility] System. Bone mineral density as measured about the Lumbar spine is: ----- L1-L4(G/cm2): 1.005 T Score Values are as follows: ----- L1: -1.7 ----- L2: -1.9 ----- L3: -1.5 ----- L4: -0.9 ----- L1-L4: -1.5 Z Score Values are as follows: ----- L1: -0.2 ----- L2: -0.4 ----- L3: -0.1 ----- L4: 0.6 ----- L1-L4: 0.0 Bone mineral density has: Decreased -2.3% since study of: 09/24/2020 Bone mineral density about the R hip (g/cm2): 0.806 Bone mineral density about the L hip (g/cm2): 0.793 T Score values are as follows: -----R Neck: -1.9 -----L Neck: -2.0 -----R Total: -1.6 -----L Total: -1.7 Z Score values are as follows: -----R Neck: -0.3 -----L Neck: -0.4 -----R Total: -0.3 -----L Total: -0.4 Bone mineral density has: Decreased -3.9% since study of: 09/24/2020 FRAX%s: The graph provided illustrates a 17.9% chance for a major osteoporotic fx and a 3.2% chance f or the hips probability for fx in 10 years time. IMPRESSION: Osteopenia (T Score between -2.5 and -1). There is slightly increased risk of fracture and the patient may be considered for treatment. Re-Screen 2-5 years. NOTE: T-SCORE=SD OF THE YOUNG ADULT MEAN.
== END | disposition home or self-care (01) ==
LOC: RADBDWWP 14:57
PROVIDERS: ATTEND Obstetrics & Gynecology
DX: M85.89 Other specified disorders of bone density and structure, multiple sites (principal)
CPT/HCPCS: 77080

== ENCOUNTER → 2023-07-26 | Outpatient (CLI) | payer MEDICARE ==
--- NOTE | 2023-07-28 18:05 | MM ---
Reason for Exam: Screening (asymptomatic). Last screening mammogram was performed 12 month(s) ago. Patient History: Menarche at age 9. Patient has no children. Postmenopausal. Risk Values: Myriam 5 year model risk: 2.1%. NCI Lifetime model risk: 6.4%. Prior Study Comparison: 07/22/2021 Bilateral Screening Mammogram, [facility]. 01/23/2022 Right MG diagnostic mammo RT w CAD, [facility]. 07/23/2022 Bilateral MG 3D diag mammo w/cad [facility], [facility]. Tissue Density: The breasts are heterogeneously dense, which may obscure small masses. Findings: Analyzed By CAD. Unchanged medial asymmetric density on the left. There is no suspicious group of microcalcifications or new suspicious mass in either breast. Overall Assessment: Benign, BI-RAD 2 Management: Screening Mammogram of both breasts in 1 year. . Patient should continue monthly self-breast exams. A clinical breast exam by your physician is recommended on an annual basis. This exam should not preclude additional follow-up of suspicious palpable abnormalities. Note on Myriam scores and lifetime risk: 1. A Myriam score greater than 3% is considered moderate risk. If this is the case, consider specialist referral to assess eligibility for a risk reducing agent. 2. If overall lifetime risk for the development of breast cancer is 20% or higher, the patient may qualify for future screening with alternating mammogram and breast MRI. Electronically signed and approved by: Magy Whitmore M.D. Radiologist
== END | disposition home or self-care (01) ==
LOC: RADMAMWWP 14:11
PROVIDERS: ATTEND Internal Medicine
DX: Z12.31 Encounter for screening mammogram for malignant neoplasm of breast (principal); Z78.0 Asymptomatic menopausal state
CPT/HCPCS: 77067

== ENCOUNTER → 2023-12-17 | Outpatient (CLI) | payer MEDICARE ==
[2023-12-17 16:05] LABS: Chol/HDL Ratio 2.05 Ratio; LDL Cholesterol,Calculated 99.5 mg/dL (0.0-131.0); VLDL Calculation 13.48 mg/dL (5.00-40.00)
== END | disposition home or self-care (01) ==
LOC: LABWHC1 11:36
PROVIDERS: ATTEND Nurse Practitioner
DX: E78.5 Hyperlipidemia, unspecified (principal)
CPT/HCPCS: 36415; 80061

== ENCOUNTER → 2024-07-27 | Outpatient (CLI) | payer MEDICARE ==
--- NOTE | 2024-07-27 14:33 | MM ---
Reason for Exam: Screening (asymptomatic). Last screening mammogram was performed 12 month(s) ago. Patient History: Menarche at age 9. Patient has no children. Postmenopausal. Maternal aunt had breast cancer, age 70. Sister had breast cancer, age 45. Risk Values: Myriam 5 year model risk: 3.7%. NCI Lifetime model risk: 10.6%. Prior Study Comparison: 01/23/2022 Right MG diagnostic mammo RT w CAD, [facility]. 07/23/2022 Bilateral MG 3D diag mammo w/cad [facility], [facility]. 07/26/2023 Bilateral MG screening mammo w CAD, [facility]. Tissue Density: The breasts are heterogeneously dense, which may obscure small masses. Findings: Analyzed By CAD. Right breast: There is no suspicious group of microcalcifications or new suspicious mass. Benign-appearing calcifications right breast. Left breast: There is no suspicious group of microcalcifications or new suspicious mass. Benign-appearing calcifications left breast. Overall Assessment: Benign, BI-RAD 2 Management: Screening Mammogram of both breasts in [address] [facility] will attempt to contact patient to return for supplemental views and ultrasound if indicated. Patient should continue monthly self-breast exams. A clinical breast exam by your physician is recommended on an annual basis. This exam should not preclude additional follow-up of suspicious palpable abnormalities. Note on Myriam scores and lifetime risk: 1. A Myriam score greater than 3% is considered moderate risk. If this is the case, consider specialist referral to assess eligibility for a risk reducing agent. 2. If overall lifetime risk for the development of breast cancer is 20% or higher, the patient may qualify for future screening with alternating mammogram and breast MRI. [facility], , 07/27/2024 2:30 PM. Electronically signed and approved by: Abelino Leal DO
== END | disposition home or self-care (01) ==
LOC: RADMAMWWP 13:32
DX: Z12.31 Encounter for screening mammogram for malignant neoplasm of breast (principal); R92.333 Mammographic heterogeneous density, bilateral breasts; Z78.0 Asymptomatic menopausal state; Z80.3 Family history of malignant neoplasm of breast
CPT/HCPCS: 77067